=== PATIENT | female | born 1970 | race Caucasian/White ===

== ENCOUNTER 2018-09-08 10:26 | Emergency (ER) | payer BC, OTHER ==
[~2018-09-08] VITALS: Ht 175.3 cm; Wt 113.4 kg
[2018-09-08] MEDS ORDERED: fentaNYL INJECTION 100 MCG/2 ML AMP IVP ONE (11:30)
--- NOTE | 2018-09-08 11:41 | ED Abdominal Pain ---
General Stated Complaint: THINKS LAP BAND SLIPPED/ABD PAIN Source of Information: Patient Exam Limitations: No Limitations History of Present Illness Date Seen by Provider: Sep 08, 2018 Time Seen by Provider: 11:20 Initial Comments 47-year-old female who presents to the emergency room with complaints of epigastric abdominal pain, nausea. She reports that last night she had similar symptoms that started around 9:00 that were radiating to her left chest. She denies any shortness of breath, lightheadedness, dizziness. She has had a lap band for years ago and she is concerned that he slipped causing the symptoms. Dr. VELIZ was the surgeon. Timing/Duration: 24 Hours Location: Epigastric Radiation: Chest Associated Symptoms: Nausea/Vomiting Allergies and Home Medications Allergies Coded Allergies: No Known Drug Allergies (Unverified , 09/08/18) Patient Home Medication List Home Medication List Reviewed: Yes Review of Systems Review of Systems Constitutional: no symptoms reported, see HPI Cardiovascular: See HPI, Chest Pain Gastrointestinal: See HPI, Abdominal Pain, Nausea All Other Systems Reviewed Negative Unless Noted: Yes Past Nmwxlhe-Qshnmp-Ooswcs Hx Past Med/Social Hx: Reviewed Nursing Past Med/Soc Hx Patient Social History Recent Foreign Travel: No Contact w/Someone Who Travel: No Family Medical History Reviewed Nursing Family Hx Physical Exam Vital Signs Vital Signs - First Documented 09/08/18 12:00 Temp 99.1 Pulse 77 Resp 22 B/P (MAP) 158/105 (122) Pulse Ox 100 O2 Delivery Room Air Capillary Refill : Height/Weight/BMI Height: '" Weight: lbs. oz. kg; BMI Method: General Appearance: WD/WN, no apparent distress HEENT: PERRL/EOMI, normal ENT inspection, TMs normal, pharynx normal Respiratory: chest non-tender, lungs clear, normal breath sounds, no respiratory distress, no accessory muscle use Cardiovascular: normal peripheral pulses, regular rate, rhythm, no edema, no gallop, no JVD, no murmur Gastrointestinal: normal bowel sounds, soft, no organomegaly, no pulsatile mass , tenderness (left upper quadrant tenderness) Neurologic/Psychiatric: alert, normal mood/affect, oriented x 3 Skin: normal color, warm/dry Progress/Results/Core Measures Results/Orders Lab Results Laboratory Tests Test 09/08/18 11:48 09/08/18 12:12 Range/Units White Blood Count 7.4 4.3-11.0 10^3/uL Red Blood Count 4.53 4.35-5.85 10^6/uL Hemoglobin 13.0 11.5-16.0 G/DL Hematocrit 38 35-52 % Mean Corpuscular Volume 84 80-99 FL Mean Corpuscular Hemoglobin 29 25-34 PG Mean Corpuscular Hemoglobin Concent 34 32-36 G/DL Red Cell Distribution Width 13.5 10.0-14.5 % Platelet Count 157 130-400 10^3/uL Mean Platelet Volume 9.3 7.4-10.4 FL Neutrophils (%) (Auto) 78 H 42-75 % Lymphocytes (%) (Auto) 15 12-44 % Monocytes (%) (Auto) 6 0-12 % Eosinophils (%) (Auto) 2 0-10 % Basophils (%) (Auto) 0 0-10 % Neutrophils # (Auto) 5.7 1.8-7.8 X 10^3 Lymphocytes # (Auto) 1.1 1.0-4.0 X 10^3 Monocytes # (Auto) 0.4 0.0-1.0 X 10^3 Eosinophils # (Auto) 0.1 0.0-0.3 10^3/uL Basophils # (Auto) 0.0 0.0-0.1 10^3/uL Prothrombin Time 12.6 12.2-14.7 SEC INR Comment 0.9 0.8-1.4 Activated Partial Thromboplast Time 25 24-35 SEC Sodium Level 140 135-145 MMOL/L Potassium Level 3.6 3.6-5.0 MMOL/L Chloride Level 103 98-107 MMOL/L Carbon Dioxide Level 25 21-32 MMOL/L Anion Gap 12 5-14 MMOL/L Blood Urea Nitrogen 17 7-18 MG/DL Creatinine 0.89 0.60-1.30 MG/DL Estimat Glomerular Filtration Rate > 60 BUN/Creatinine Ratio 19 Glucose Level 168 H 70-105 MG/DL Calcium Level 9.4 8.5-10.1 MG/DL Corrected Calcium 9.2 8.5-10.1 MG/DL Magnesium Level 1.8 1.8-2.4 MG/DL Total Bilirubin 0.8 0.1-1.0 MG/DL Aspartate Amino Transf (AST/SGOT) 14 5-34 U/L Alanine Aminotransferase (ALT/SGPT) 17 0-55 U/L Alkaline Phosphatase 75 40-136 U/L Myoglobin 31.0 10.0-92.0 NG/ML Troponin I < 0.028 <0.028 NG/ML Total Protein 6.8 6.4-8.2 GM/DL Albumin 4.3 3.2-4.5 GM/DL Urine Color YELLOW Urine Clarity CLEAR Urine pH 6 5-9 Urine Specific [place] 1.015 L 1.016-1.022 Urine Protein NEGATIVE NEGATIVE Urine Glucose (UA) NEGATIVE NEGATIVE Urine Ketones NEGATIVE NEGATIVE Urine Nitrite NEGATIVE NEGATIVE Urine Bilirubin NEGATIVE NEGATIVE Urine Urobilinogen NORMAL NORMAL MG/DL Urine Leukocyte Esterase NEGATIVE NEGATIVE Urine RBC (Auto) NEGATIVE NEGATIVE Urine RBC NONE /HPF Urine WBC RARE /HPF Urine Squamous Epithelial Cells 5-10 /HPF Urine Crystals NONE /LPF Urine Bacteria NEGATIVE /HPF Urine Casts NONE /LPF Urine Mucus NEGATIVE /LPF Urine Culture Indicated NO My Orders Orders - MELISSA MANZANO Cbc With Automated Diff (09/08/18 11:23) Magnesium (09/08/18 11:23) Chest 1 View, Ap/Pa Only (09/08/18 11:23) Ekg Tracing (09/08/18 11:23) Cardiac Profile 1 (09/08/18 11:23) Comprehensive Metabolic Panel (09/08/18 11:23) Myoglobin Serum (09/08/18 11:23) Protime With Inr (09/08/18 11:23) Partial Thromboplastin Time (09/08/18 11:23) O2 (09/08/18 11:23) Monitor-Rhythm Ecg Trace Only (09/08/18 11:23) Saline Lock/Iv-Start (09/08/18 11:23) Fentanyl Injection (Sublimaze Injection (09/08/18 11:30) Abdomen/Kub 1view (09/08/18 11:30) Ua Culture If Indicated (09/08/18 12:22) Medications Given in ED Vital Signs/I&O 09/08/18 09/08/18 12:00 13:16 Temp 99.1 98.2 Pulse 77 71 Resp 22 20 B/P (MAP) 158/105 (122) 127/74 (91) Pulse Ox 100 100 O2 Delivery Room Air Room Air Progress Progress Note : Time: 12:50 Progress Note I have seen and evaluated the patient. I discussed the case with Dr. Veliz and he recommends having the patient go straight to his office to have the fluid let out of her band. The patient agrees with plan of care, plans for discharge, return precautions were given. Diagnostic Imaging Diagonstic Imaging: Xray Plain Films/CT/US/NM/MRI: chest, abdomen Comments NAME: GUSTAVO NEW Patience [facility] REC#: [id number] PHYSICIAN: MELISSA MANZANO CC: MELISSA MANZANO; PEARL SONG MD Page 1 of 1 RADIOLOGY REPORT [facility] [place], [place] CC: MELISSA MANZANO; PEARL SONG MD Page 1 of 1 RADIOLOGY REPORT NAME: RETAKEYGUSTAVO Patience [facility] REC#: [id number] PT STATUS: DEP ER : 1970 PHYSICIAN: MELISSA MANZANO ADMIT DATE: 09/08/18/ER Signed Date of Exam: 09/08/18 CHEST 1 VIEW, AP/PA ONLY INDICATION: Abdominal and chest pain. TECHNIQUE: Single PA view of the chest is obtained. COMPARISON: No previous study is available for comparison at this time. FINDINGS: Heart size and pulmonary vasculature are within normal limits, and the lungs are clear, bilaterally. IMPRESSION: Unremarkable chest. Dictated by: Dictated on workstation # [id number] Dict: 09/08/18 1229 Trans: 09/08/18 1332 Interpreted by: PEARL SONG MD Electronically signed by: PEARL SONG MD 09/08/18 1332 NAME: GUSTAVO NEW Patience [facility] REC#: [id number] PHYSICIAN: MELISSA MANZANO CC: NICKY MANZANO THOMAS D Page 1 of 1 RADIOLOGY REPORT [facility] [place], [place] CC: NICKY MANZANO THOMAS D Page 1 of 1 RADIOLOGY REPORT NAME: GUSTAVO NEW Patience [facility] REC#: [id number] PT STATUS: DEP ER : 1970 PHYSICIAN: MELISSA MANZANO ADMIT DATE: 09/08/18/ER Signed Date of Exam: 09/08/18 ABDOMEN/KUB 1VIEW INDICATION: Abdominal pain FINDINGS: The gastric lap band is present projecting in expected orientation. Tubing course is unremarkable. The bowel gas pattern normal. No evidence for distal esophageal or gastric dilatation. The bowel gas pattern in the abdomen and upper pelvis appeared normal. IMPRESSION: Gastric lap band projects in expected location and orientation with no pathological finding identified. Dictated by: Dictated on workstation # [id number] Dict: 09/08/18 1241 Trans: 09/08/18 1629 Interpreted by: PEARL BLANCO Electronically signed by: PEARL BLANCO 09/08/18 1629 Reviewed: Reviewed by Me Departure Impression Primary Impression: Nausea and vomiting Additional Impression: Epigastric abdominal pain Disposition: HOME, SELF-CARE Condition: Stable/Unchanged Departure-Patient Inst. Decision time for Depature: 13:06 Referrals: NO,LOCAL PHYSICIAN (PCP/Family) Primary Care Physician Patient Instructions: Nausea and Vomiting, Adult, Acute Abdomen (Belly Pain), Adult (DC) Add. Discharge Instructions: Go straight to Dr. VELIZ's office and he will let the lap bands fluid out as he believes this will provide you complete relief of symptoms. Return back to the emergency room for any worsening symptoms or concerns as needed. Follow-up with your primary care provider as needed. You may use ibuprofen and Tylenol as directed by the bottle for pain relief. MELISSA MAZNANO Sep 08, 2018 11:40
[2018-09-08 11:56] LABS: BASOPHILS % (AUTO) 0 % (0-10); EOSINOPHILS # (AUTO) 0.1 10^3/uL (0.0-0.3); EOSINOPHILS % (AUTO) 2 % (0-10); HEMATOCRIT 38 % (35-52); LYMPHOCYTES # (AUTO) 1.1 X 10^3 (1.0-4.0); LYMPHOCYTES % (AUTO) 15 % (12-44); MEAN CORPUSCULAR HEMOGLOBIN 29 PG (25-34); MEAN CORPUSCULAR HGB CONC 34 G/DL (32-36); MEAN CORPUSCULAR VOLUME 84 FL (80-99); MEAN PLATELET VOLUME 9.3 FL (7.4-10.4); MONOCYTES # (AUTO) 0.4 X 10^3 (0.0-1.0); MONOCYTES % (AUTO) 6 % (0-12); NEUTROPHILS # (AUTO) 5.7 X 10^3 (1.8-7.8); NEUTROPHILS % (AUTO) 78 % (42-75); PLATELET COUNT 157 10^3/uL (130-400); RED BLOOD COUNT 4.53 10^6/uL (4.35-5.85); RED CELL DISTRIBUTION WIDTH 13.5 % (10.0-14.5); WHITE BLOOD COUNT 7.4 10^3/uL (4.3-11.0)
[2018-09-08 12:24] LABS: INR 0.9 (0.8-1.4); PROTHROMBIN TIME PATIENT 12.6 SEC (12.2-14.7)
[2018-09-08 12:27] LABS: BILIRUBIN,URINE NEGATIVE (NEGATIVE); CLARITY,URINE CLEAR; COLOR,URINE YELLOW; GLUCOSE, URINE (UA) NEGATIVE (NEGATIVE); KETONES,URINE NEGATIVE (NEGATIVE); LEUKOCYTE ESTERASE ,URINE NEGATIVE (NEGATIVE); NITRITE,URINE NEGATIVE (NEGATIVE); PH,URINE 6 (5-9); PROTEIN,URINE NEGATIVE (NEGATIVE); UROBILINOGEN,URINE NORMAL (NORMAL)
[2018-09-08 12:34] LABS: ALANINE AMINOTRANSFERASE 17 U/L (0-55); ALBUMIN 4.3 GM/DL (3.2-4.5); ALKALINE PHOSPHATASE 75 U/L (40-136); BILIRUBIN,TOTAL 0.8 MG/DL (0.1-1.0); BUN/CREATININE RATIO 19; CALCIUM 9.4 MG/DL (8.5-10.1); CARBON DIOXIDE 25 MMOL/L (21-32); CHLORIDE 103 MMOL/L (98-107); CREATININE SERUM 0.89 MG/DL (0.60-1.30); GFR ESTIMATED > 60; GLUCOSE 168 MG/DL (70-105); MAGNESIUM 1.8 MG/DL (1.8-2.4); POTASSIUM 3.6 MMOL/L (3.6-5.0); SODIUM 140 MMOL/L (135-145); TOTAL PROTEIN 6.8 GM/DL (6.4-8.2)
[2018-09-08 12:35] LABS: BACTERIA,URINE NEGATIVE /HPF; WBC,URINE RARE /HPF
--- NOTE | 2018-09-08 12:41 | Diagnostic Imaging Report ---
INDICATION: Abdominal and chest pain. TECHNIQUE: Single PA view of the chest is obtained. COMPARISON: No previous study is available for comparison at this time. FINDINGS: Heart size and pulmonary vasculature are within normal limits, and the lungs are clear, bilaterally. IMPRESSION: Unremarkable chest. Dictated by: Dictated on workstation # [id number]
--- NOTE | 2018-09-08 12:48 | Diagnostic Imaging Report ---
INDICATION: Abdominal pain FINDINGS: The gastric lap band is present projecting in expected orientation. Tubing course is unremarkable. The bowel gas pattern normal. No evidence for distal esophageal or gastric dilatation. The bowel gas pattern in the abdomen and upper pelvis appeared normal. IMPRESSION: Gastric lap band projects in expected location and orientation with no pathological finding identified. Dictated by: Dictated on workstation # [id number]
[2018-09-08 13:16] VITALS: BP 127/74
== END 2018-09-08 13:16 | disposition home or self-care (01) ==
LOC: ER 10:28
DX: R10.13 Epigastric pain (principal); R11.2 Nausea with vomiting, unspecified; Z98.84 Bariatric surgery status
CPT/HCPCS: 36415; 71045; 74018; 80053; 81000; 83735; 83874; 84484; 85025; 85610; 85730; 93005; 93041